=== PATIENT | male | born 1930 | race Caucasian/White ===

== ENCOUNTER 2016-10-03 15:43 | Emergency (ER) | payer OTHER, BC ==
[~2016-10-03] VITALS: Ht 180.3 cm; Wt 81.8 kg
[2016-10-03 16:26] LABS: HEMATOCRIT 38.3 % (38.0-50.0); MCH 31.9 PG (29.0-34.0); MCHC 33.2 G/DL (30.0-36.0); MCV 96.2 FL (86-99); MEAN PLAT.VOLUME 10.2 uM^3 (9.0-12.4); PLATELET COUNT 184 K/uL (156-360); RBC DIS.WIDTH-CV 12.4 % (11.8-14.6); RBC DIS.WIDTH-SD 44.4 % (39-53); RED BLOOD COUNT 3.98 M/uL (4.00-5.50); WHITE BLOOD COUNT 7.5 K/uL (4.1-10.2)
[2016-10-03 16:35] LABS: CHLORIDE 106 mEq/L (99-109); POTASSIUM 4.3 mEq/L (3.7-5.4); SODIUM 140 mEq/L (136-147)
[2016-10-03 16:37] LABS: GLUCOSE 102 mg/dL (70-99)
[2016-10-03 16:38] LABS: ANION GAP 10 MEQ/L (2-14)
[2016-10-03 16:41] LABS: GFR ESTIMATE (CALCULATED) > 59 mL/min/
[2016-10-03 16:42] LABS: UREA NITROGEN (BUN) 28 mg/dL (9-23)
[2016-10-03 16:45] LABS: ADD MIUA? NO; BILIRUBIN NEGATIVE; BLOOD NEGATIVE; COLOR YELLOW ((YELLOW)); GLUCOSE (STRIP) NEGATIVE; KETONES 5; LEUKOCYTES NEGATIVE; NITRITE NEGATIVE; PROTEIN (STRIP) NEGATIVE; SPECIFIC GRAVITY 1.021 (1.000-1.030); UCUL ADDED? NO; UROBILINOGEN 0.2 MG/DL (0.2-1.0)
[2016-10-03 18:40] VITALS: BP 156/85
== END 2016-10-03 18:59 | disposition home or self-care (01) ==
LOC: EME 15:43
DX: S09.8XXA Other specified injuries of head, initial encounter (principal); S01.81XA Laceration without foreign body of other part of head, initial encounter; W07.XXXA Fall from chair, initial encounter
CPT/HCPCS: 70450; 80048; 81003; 85027; 99281; 99284

== ENCOUNTER 2016-10-04 19:22 | Emergency (ER) | payer OTHER, BC ==
[~2016-10-04] VITALS: Ht 180.3 cm; Wt 77.7 kg
[2016-10-04 22:26] VITALS: BP 148/81
== END 2016-10-04 22:28 | disposition home or self-care (01) ==
LOC: EME 19:22
PROC: 2W3DX1Z Immobilization of Left Lower Arm using Splint (ICD-10-PCS; principal; 2016-10-04)
DX: S52.592A Other fractures of lower end of left radius, initial encounter for closed fracture (principal); W19.XXXA Unspecified fall, initial encounter; Y92.129 Unspecified place in nursing home as the place of occurrence of the external cause; I25.2 Old myocardial infarction; G20 Parkinson's disease
CPT/HCPCS: 73110; 99281; 99283

== ENCOUNTER 2017-06-21 19:42 | Emergency (ER) | payer OTHER, BC ==
[~2017-06-21] VITALS: Ht 182.9 cm; Wt 70.6 kg
[2017-06-21 23:11] VITALS: BP 146/76
== END 2017-06-21 23:12 | disposition home or self-care (01) ==
LOC: EME → EDBD 19:42 → EME 23:12
DX: N40.0 Benign prostatic hyperplasia without lower urinary tract symptoms (principal); G20 Parkinson's disease; K21.9 Gastro-esophageal reflux disease without esophagitis; W19.XXXA Unspecified fall, initial encounter; Y92.099 Unspecified place in other non-institutional residence as the place of occurrence of the external cause; Z86.73 Personal history of transient ischemic attack (TIA), and cerebral infarction without residual deficits
CPT/HCPCS: 70450; 99281; 99284

== ENCOUNTER 2017-08-07 08:24 | Emergency (ER) | payer OTHER, BC ==
[~2017-08-07] VITALS: Ht 182.9 cm; Wt 76.4 kg
[2017-08-07 09:33] LABS: HEMATOCRIT 39.3 % (38.0-50.0); HEMOGLOBIN 13.2 G/DL (12.5-16.6); MCH 33.1 PG (29.0-34.0); MCHC 33.6 G/DL (30.0-36.0); MCV 98.5 FL (86-99); PLATELET COUNT 177 K/uL (156-360); RBC DIS.WIDTH-CV 12.1 % (11.8-14.6); RBC DIS.WIDTH-SD 44.1 % (39-53); RED BLOOD COUNT 3.99 M/uL (4.00-5.50); WHITE BLOOD COUNT 9.7 K/uL (4.1-10.2)
[2017-08-07 09:43] LABS: CHLORIDE 104 mEq/L (99-109); POTASSIUM 4.1 mEq/L (3.7-5.4)
[2017-08-07 09:44] LABS: SODIUM 134 mEq/L (136-147)
[2017-08-07 09:45] LABS: GLUCOSE 88 mg/dL (70-99)
[2017-08-07 09:49] LABS: CREATININE 0.9 mg/dL (0.6-1.3); GFR ESTIMATE (CALCULATED) > 59 mL/min/ (58.99-99999)
[2017-08-07 09:50] LABS: UREA NITROGEN (BUN) 23 mg/dL (9-23)
[2017-08-07 09:54] LABS: TROP-I INTERPRETATION NEGATIVE; TROPONIN-I < 0.01 ng/mL (0.0-0.30)
[2017-08-07 10:25] LABS: APPEARANCE CLEAR ((CLEAR)); BILIRUBIN NEGATIVE; BLOOD SMALL; COLOR STRAW ((YELLOW)); GLUCOSE (STRIP) NEGATIVE; KETONES NEGATIVE; LEUKOCYTES NEGATIVE; NITRITE NEGATIVE; PROTEIN (STRIP) NEGATIVE; SPECIFIC GRAVITY 1.012 (1.000-1.030); UROBILINOGEN 0.2 MG/DL (0.2-1.0)
[2017-08-07 10:32] LABS: BACTERIA NONE SEEN /HPF; EPITHELIAL CELLS NONE SEEN /HPF; MUCUS TRACE /LPF; RED BLOOD CELLS 0-5 /HPF (0-5); UCUL ADDED? NO; WHITE BLOOD CELLS 0-5 /HPF (0-5)
[2017-08-07 12:32] VITALS: BP 164/86
== END 2017-08-07 12:37 | disposition home or self-care (01) ==
LOC: EME 08:24
PROVIDERS: Emergency Medicine
PROC: 3E0234Z Introduction of Serum, Toxoid and Vaccine into Muscle, Percutaneous Approach (ICD-10-PCS; principal; 2017-08-07)
DX: S09.8XXA Other specified injuries of head, initial encounter (principal); S50.311A Abrasion of right elbow, initial encounter; S00.01XA Abrasion of scalp, initial encounter; W01.0XXA Fall on same level from slipping, tripping and stumbling without subsequent striking against object, initial encounter; Z23 Encounter for immunization; M85.88 Other specified disorders of bone density and structure, other site; M19.021 Primary osteoarthritis, right elbow; I44.0 Atrioventricular block, first degree; G20 Parkinson's disease; Z86.73 Personal history of transient ischemic attack (TIA), and cerebral infarction without residual deficits
CPT/HCPCS: 70450; 71045; 73080; 80048; 81003; 84484; 85027; 93005; 99281; 99284

== ENCOUNTER 2017-12-24 08:36 | Inpatient (IN) | payer OTHER, BC ==
[~2017-12-24] VITALS: Ht 182.9 cm; Wt 75.0 kg
[2017-12-24 08:59] LABS: BASOPHIL (%) 0.1 % (0-1); EOSINOPHIL (%) 1.2 % (0-5); EOSINOPHIL COUNT 0.1 K/uL (0-0.3); HEMOGLOBIN 11.2 G/DL (12.5-16.6); IMMATURE GRANULOCYTE (%) 0.3 % (0.0-0.7); LYMPHOCYTE (%) 21.9 % (15-42); LYMPHOCYTE COUNT 1.6 K/uL (1.0-2.8); MCH 33.3 PG (29.0-34.0); MCHC 33.9 G/DL (30.0-36.0); MCV 98.2 FL (86-99); MONOCYTE (%) 9.2 % (3-12); MONOCYTE COUNT 0.7 K/uL (0-0.8); NEUTROPHIL (%) 67.3 % (45-76); PLATELET COUNT 188 K/uL (156-360); RBC DIS.WIDTH-CV 11.4 % (11.8-14.6); RBC DIS.WIDTH-SD 41.1 % (39-53); RED BLOOD COUNT 3.36 M/uL (4.00-5.50); WHITE BLOOD COUNT 7.4 K/uL (4.1-10.2)
[2017-12-24 09:10] LABS: AMYLASE 84 IU/L (1-118); CHLORIDE 109 mEq/L (99-109); POTASSIUM 4.2 mEq/L (3.7-5.4); SODIUM 142 mEq/L (136-147)
[2017-12-24 09:12] LABS: GLUCOSE 98 mg/dL (70-99)
[2017-12-24 09:15] LABS: GFR ESTIMATE (CALCULATED) > 59 mL/min/ (58.99-99999); INTER. NORMALIZED RATIO 1.2; SERUM ETHYL ALCOHOL < 10 mg/dL
[2017-12-24 09:16] LABS: UREA NITROGEN (BUN) 28 mg/dL (9-23)
[2017-12-24 09:18] LABS: LIPASE 9 U/L (1.0-51.0); PTT 32.3 SEC (25-37)
[2017-12-24 09:21] LABS: TROP-I INTERPRETATION NEGATIVE; TROPONIN-I < 0.01 ng/mL (0.0-0.30)
[2017-12-24 09:25] LABS: APPEARANCE SL.HAZY ((CLEAR)); BILIRUBIN NEGATIVE; BLOOD LARGE; COLOR YELLOW ((YELLOW)); GLUCOSE (STRIP) NEGATIVE; KETONES 5; LEUKOCYTES NEGATIVE; NITRITE NEGATIVE; PROTEIN (STRIP) 30; SPECIFIC GRAVITY 1.019 (1.000-1.030)
[2017-12-24 09:41] LABS: AMPHETAMINE NEGATIVE (500 ng/mL); BARBITURATES NEGATIVE (200 ng/mL); BENZODIAZEPINES NEGATIVE (150 ng/mL); BUPRENORPHINE NEGATIVE (10 ng/mL); COCAINE NEGATIVE (150 ng/mL); METHADONE NEGATIVE (200 ng/mL); METHAMPHETAMINE NEGATIVE (500 ng/mL); OPIATES (MORPHINE) PRESUMPTIVE POSITIVE (100 ng/mL); OXYCODONE NEGATIVE (100 ng/mL); PHENCYCLIDINE NEGATIVE (25 ng/mL); PROPOXYPHENE NEGATIVE (300 ng/mL); THC CANNABINOIDS NEGATIVE (50 ng/mL); TRICYCLIC ANTIDEPRESSANTS NEGATIVE (300 ng/mL)
[2017-12-24 09:54] LABS: BACTERIA 1+ /HPF; EPITHELIAL CELLS RARE /HPF; MUCUS 1+ /LPF; RED BLOOD CELLS TNTC /HPF (0-5); UCUL ADDED? YES; WHITE BLOOD CELLS 0-5 /HPF (0-5)
[2017-12-24 09:55] LABS: AMORPHOUS URATES CRYSTALS 1+
[2017-12-24 14:20] VITALS: BP 152/81
[2017-12-24] MEDS ORDERED: CYANOCOBAL1000 MCG/2 IM (14:27)
[2017-12-24] MEDS ORDERED: ASPIR-LOW81 MG PO (14:28)
[2017-12-24] MEDS ORDERED: LASIX20 MG PO (14:31)
[2017-12-24] MEDS ORDERED: DONEPEZIL HCL10 MG PO (14:31)
[2017-12-24] MEDS ORDERED: POTASSIUM CHLO10 ME4 PO (14:31)
[2017-12-24] MEDS ORDERED: TAMSULOSIN HCL0.4 MG PO (14:32)
[2017-12-24] MEDS ORDERED: CARBIDOPA/LEVO1 EACH PO ×2 (14:32→14:33)
[2017-12-24] MEDS ORDERED: RANITIDINE HCL150 MG PO (14:33)
[2017-12-24] MEDS ORDERED: ROPINIROLE HCL1 MG PO (14:34)
[2017-12-24] MEDS ORDERED: TYLENOL EXTRA500 MG PO (14:34)
[2017-12-24] MEDS ORDERED: MELATONIN3 MG PO (14:35)
[2017-12-24] MEDS ORDERED: GABAPENTIN300 MG PO (14:35)
[2017-12-24] MEDS ORDERED: ROPINIROLE HCL0.5 MG PO (14:36)
[2017-12-24] MEDS ORDERED: FINASTERIDE5 MG PO (14:36)
[2017-12-24] MEDS ORDERED: MOBIC15 MG PO (14:37)
[2017-12-24] MEDS ORDERED: CARBIDOPA-LEVO1 EAC7 PO (14:37)
[2017-12-24] MEDS ORDERED: MIRALAX17 GM PO (14:38)
[2017-12-24] MEDS ORDERED: CYCLOBENZAPRINE5 MG PO (14:39)
[2017-12-25] VITALS (9 sets, daily range): BP systolic 78–181; BP diastolic 48–88
[2017-12-25 05:55] LABS: HEMATOCRIT 37.4 % (38.0-50.0); HEMOGLOBIN 12.5 G/DL (12.5-16.6); MCH 32.4 PG (29.0-34.0); MCHC 33.4 G/DL (30.0-36.0); MCV 96.9 FL (86-99); PLATELET COUNT 210 K/uL (156-360); RBC DIS.WIDTH-CV 11.5 % (11.8-14.6); RBC DIS.WIDTH-SD 40.5 % (39-53); RED BLOOD COUNT 3.86 M/uL (4.00-5.50); WHITE BLOOD COUNT 7.7 K/uL (4.1-10.2)
[2017-12-25 06:16] LABS: CHLORIDE 106 MEQ/L (99-109); CREATININE 0.8 MG/DL (0.6-1.3); GFR ESTIMATE (CALCULATED) > 59 mL/min/ (58.99-99999); GLUCOSE 90 mg/dL (70-99); POTASSIUM 3.9 MEQ/L (3.7-5.4); SODIUM 139 MEQ/L (136-147); UREA NITROGEN (BUN) 22 mg/dL (9-23)
[2017-12-26 04:35] VITALS: BP 191/91
[2017-12-26 05:30] LABS: BASOPHIL (%) 0.4 % (0-1); EOSINOPHIL (%) 1.4 % (0-5); EOSINOPHIL COUNT 0.1 K/uL (0-0.3); HEMATOCRIT 35.2 % (38.0-50.0); HEMOGLOBIN 11.8 G/DL (12.5-16.6); IMMATURE GRANULOCYTE (%) 0.4 % (0.0-0.7); LYMPHOCYTE (%) 29.4 % (15-42); LYMPHOCYTE COUNT 2.3 K/uL (1.0-2.8); MCH 32.4 PG (29.0-34.0); MCHC 33.5 G/DL (30.0-36.0); MCV 96.7 FL (86-99); MONOCYTE (%) 10.4 % (3-12); MONOCYTE COUNT 0.8 K/uL (0-0.8); NEUTROPHIL COUNT 4.5 K/uL (1.8-6.4); PLATELET COUNT 210 K/uL (156-360); RBC DIS.WIDTH-CV 11.2 % (11.8-14.6); RBC DIS.WIDTH-SD 39.9 % (39-53); RED BLOOD COUNT 3.64 M/uL (4.00-5.50); WHITE BLOOD COUNT 7.8 K/uL (4.1-10.2)
[2017-12-26 06:15] LABS: ALBUMIN 3.7 G/DL (3.2-4.8); ALKALINE PHOSPHATASE 60 IU/L (3-129); AST (GOT) 13 IU/L (2-34); CHLORIDE 105 MEQ/L (99-109); CREATININE 0.8 MG/DL (0.6-1.3); GFR ESTIMATE (CALCULATED) > 59 mL/min/ (58.99-99999); GLUCOSE 87 mg/dL (70-99); POTASSIUM 3.6 MEQ/L (3.7-5.4); SODIUM 139 MEQ/L (136-147); TOTAL BILIRUBIN 0.7 MG/DL (0.0-1.0); TOTAL PROTEIN 6.2 G/DL (6.4-8.3); UREA NITROGEN (BUN) 25 mg/dL (9-23)
[2017-12-26 06:28] LABS: ALT (GPT) < 3 IU/L (3-49)
[2017-12-26 07:36] VITALS: BP 165/72
[2017-12-26 12:36] VITALS: BP 156/81
[2017-12-26 14:34] LABS: BENZODIAZEPINES, URINE SCREEN Negative (200 ng/mL)
== END 2017-12-26 15:13 | disposition home or self-care (01) | DRG 312 ==
LOC: EME 08:36 → EDOF 11:54 → 4SOUTH 11:54 → ENRESERV 11:55 → 4SOUTH 14:14
PROVIDERS: Emergency Medicine; Hospitalist; Physician Assistant Medical
DX: R55 Syncope and collapse (principal); G20 Parkinson's disease; I10 Essential (primary) hypertension; K21.9 Gastro-esophageal reflux disease without esophagitis; E78.5 Hyperlipidemia, unspecified; N40.0 Benign prostatic hyperplasia without lower urinary tract symptoms; G30.9 Alzheimer's disease, unspecified; F02.80 Dementia in other diseases classified elsewhere, unspecified severity, without behavioral disturbance, psychotic disturbance, mood disturbance, and anxiety; E53.8 Deficiency of other specified B group vitamins; R29.6 Repeated falls; Z86.73 Personal history of transient ischemic attack (TIA), and cerebral infarction without residual deficits; Z91.19 Patient's noncompliance with other medical treatment and regimen
CPT/HCPCS: 70450; 70551; 80048; 80053; 80306 90; 81003; 82150; 82948; 83690; 84484; 84999; 85025; 85027; 85610; 85730; 86850; 86900; 86901; 87086; 93005; 93880; 99281; 99285; G0378; G0480; G8978 GP CM; G8979 GP CI; G8987 GO CM; G8988 GO CK; J1650; J7040; J7120